=== PATIENT | female | born 1990 | race Caucasian/White ===

== ENCOUNTER 2020-03-19 07:10 | Emergency (ER) | payer OTHER ==
[2020-03-19] MEDS ORDERED: SODIUM CHLORIDE 0.9% 1,000 ML IV STA (07:23)
[2020-03-19] MEDS ORDERED: ONDANSETRON 4 MG/2 ML VIAL IVP STA (07:23)
[2020-03-19] MEDS ORDERED: LORazepam 2 MG/ML VIAL IVP STA (07:50)
--- NOTE | 2020-03-19 07:53 | ED Physician Documentation ---
PD HPI NVD - Stated complaint Stated Complaint: VOMITING/SHAKES - Chief complaint Chief Complaint: Abd Pain - History obtained from History obtained from: Patient - Additonal information Additional information: Patient comes emergency department complaining of nausea and vomiting since about midnight last night. Patient states that she did some drinking yesterday evening and had 3 shots of liquor, as well as 2 beers. She states she never has handled liquor well, but that she usually does not get the sick afterward. She states that around midnight she woke up feeling increasingly nauseated and began to vomit. The vomiting has continued throughout the night since. Patient denies abdominal pain per se, but states that her abdomen feels generally sore from all the vomiting. No diarrhea. No dysuria, vaginal complaints, or back pain. No chest complaints. Patient denies fevers. No sick contacts. She states she was feeling completely fine earlier in the day and did not have any inkling of sickness until midnight. Patient states she is otherwise fairly healthy. She has had a cholecystectomy, but no other abdominal surgeries. She does not think she is . No other complaints at this time. Review of Systems Ten Systems: 10 systems reviewed and negative Constitutional: reports: Reviewed and negative Eyes: reports: Reviewed and negative Ears: reports: Reviewed and negative Nose: reports: Reviewed and negative Throat: reports: Reviewed and negative Cardiac: reports: Reviewed and negative Respiratory: reports: Reviewed and negative GI: reports: Nausea, Vomiting. denies: Abdominal Pain, Diarrhea : reports: Reviewed and negative Skin: reports: Reviewed and negative Musculoskeletal: reports: Reviewed and negative Neurologic: reports: Reviewed and negative Psychiatric: reports: Reviewed and negative Endocrine: reports: Reviewed and negative Immunocompromised: reports: Reviewed and negative PD PAST MEDICAL HISTORY - Past Medical History Cardiovascular: None Respiratory: Asthma Neuro: None Endocrine/Autoimmune: None GI: None ICT EDUCATOR: None : None HEENT: None Psych: None Musculoskeletal: None Derm: None - Past Surgical History Past Surgical History: Yes General: Cholecystectomy - Present Medications Home Medications: Ambulatory Orders Medication Instructions Recorded Confirmed Ondansetron Odt [Zofran] 4 mg TL Q6H PRN #10 tablet 03/19/20 Promethazine Supp [Phenergan Supp] 25 mg PA Q6HR PRN #12 supp 03/19/20 - Allergies Allergies/Adverse Reactions: Allergies Allergy/AdvReac Type Severity Reaction Status Date / Time No Known Drug Allergies Allergy Verified 03/19/20 07:16 - Social History Does the pt smoke?: Yes Smoking Status: Current every day smoker Does the pt drink ETOH?: Yes ETOH Use: Beer Does the pt have substance abuse?: No Substance Use and Type: Marijuana - Immunizations Immunizations are current?: Yes PD ED PE NORMAL - Vitals Vital signs reviewed: Yes - General General: Alert and oriented X 3, No acute distress (Patient appears moderately uncomfortable, retching and groaning, but otherwise no distress.), Well developed/nourished - HEENT HEENT: Atraumatic, PERRL, EOMI, Moist mucous membranes - Neck Neck: Supple, no meningeal sign - Cardiac Cardiac: RRR, No murmur - Respiratory Respiratory: No respiratory distress, Clear bilaterally - Abdomen Abdomen: Soft, Non distended, Other (Mild diffuse tenderness. No rebound or guarding.) - Back Back: No CVA TTP - Derm Derm: Normal color, No rash, Other (Patient is mildly diaphoretic and skin is cool.) - Extremities Extremities: No deformity, No edema - Neuro Neuro: Alert and oriented X 3, contract coordinator 2-12 intact, No motor deficit, No sensory deficit, Normal speech, Other (Grossly intact) - Psych Psych: Normal mood, Normal affect Results - Vitals Vitals: Vital Signs - 24 hr 03/19/20 03/19/20 03/19/20 07:14 07:44 09:17 Temperature 36.0 C L 36.0 C L 36.0 C L Heart Rate 101 H 97 77 Respiratory 18 24 18 Rate Blood Pressure 133/87 H 152/98 H 127/85 H O2 Saturation 99 96 99 03/19/20 10:44 Temperature 36.5 C Heart Rate 87 Respiratory 16 Rate Blood Pressure 129/95 H O2 Saturation 100 Oxygen O2 Source Room air PD MEDICAL DECISION MAKING - ED course Complexity details: reviewed old records, considered differential, d/w patient ED course: The patient was given a liter of 0.0 normal saline treated with Zofran. She was also given half a milligram of Ativan IV. The patient had mild improvement for a short time, but then began to anxious and retching again. This time, she was given Phenergan and Benadryl IV, and reported feeling much better after this. She slept for about an hour in the emergency department and when she woke up, she stated she was feeling much better and ready to go home. I have given her prescriptions for Zofran and Phenergan. I have also written her a work note for today. We have discussed home management of the symptoms, as well as the indications for return. Departure - Departure Disposition: Home, Self Care Clinical Impression: Vomiting Qualifiers: Vomiting type: bilious vomiting Nausea presence: with nausea Qualified Code(s): R11.14 - Bilious vomiting Condition: Stable Instructions: ED Nausea Vomiting Prescriptions: Promethazine Supp [Phenergan Supp] 25 mg PA Q6HR PRN #12 supp PRN Reason: Nausea / Vomiting Ondansetron Odt [Zofran] 4 mg TL Q6H PRN #10 tablet PRN Reason: Nausea / Vomiting Discharge Date/Time: 03/19/20 10:50
[2020-03-19] MEDS ORDERED: PROMETHAZINE INJ 25 MG in SODIUM CHLORIDE 0.9% 50 ML IV STA (08:38)
[2020-03-19] MEDS ORDERED: diphenhydrAMINE INJ 50 MG/ML VIAL IVP STA (08:38)
[2020-03-19] MEDS ORDERED: PROMETHAZINE 25 MG/1 ML VIAL ONE (08:52)
[2020-03-19 10:49] VITALS: BP 129/95
== END 2020-03-19 10:50 | disposition home or self-care (01) ==
LOC: ED 07:10
DX: R11.14 Bilious vomiting (principal); F17.200 Nicotine dependence, unspecified, uncomplicated
CPT/HCPCS: 96365; 96375; 99284; J1200; J2060; J7040